=== PATIENT | female | born 1980 | race Two or more races ===

== ENCOUNTER 2025-07-20 09:37 | Outpatient (CLI) | payer MEDICAID ==
[~2025-07-20 09:37] MED LIST: iohexol 300mg/ml 100ml inj. ONE
--- NOTE | 2025-07-20 10:36 | RADIOLOGY REPORT ---
EXAM: CT CT ABDOMEN PELVIS W/WO IV CONTRAST History: LEFT LOWER QUADRANT PAIN COMPARISON: None TECHNIQUE: Multidetector spiral CT of the abdomen and pelvis was performed from lung bases to pubic symphysis. Intravenous contrast was administered during this examination. Portal venous imaging was obtained. Axial, coronal and sagittal multiplanar reformats were performed by the technologist on a separate workstation. Radiation Dose : 1. Abdomen/Pelvis: CTDIvol 27.8 mGy, DLP 1431.16 mGy*cm. CONTRAST: Type of contrast: Omnipaque 300 Contrast injected: 100 ml FINDINGS: Lung Bases: No acute or significant lung base finding. Normal heart size. No pleural or pericardial effusion. Liver: The liver is normal in size. No focal lesions. Normal hepatic vascular enhancement. Gallbladder and Biliary Tree: Unremarkable Spleen: Unremarkable Pancreas: The pancreas is normal in appearance without focal lesions or abnormal enhancement. Adrenal Glands: Unremarkable Kidneys: No hydronephrosis. Bladder: Unremarkable Bowel: The stomach is grossly normal in appearance. Small bowel and colon are normal in caliber and distribution. Normal appendix is visualized in the right lower quadrant without findings of appendicitis. Few scattered colonic diverticula. Ascites: Absent Lymphadenopathy: No mesenteric, retroperitoneal or periportal lymphadenopathy. Abdominal Wall and Mesentery: Unremarkable. Vasculature: The visualized abdominal aorta is normal in size and caliber. Abdominal and pelvic vessels demonstrate normal enhancement. Pelvic Organs: Few fibroids. Musculoskeletal: No aggressive focal bony lesions, acute fractures or dislocation. IMPRESSION: No clear cause for symptoms. Radiation optimization: All CT scans at this facility use at least one of these dose optimization techniques: automated exposure control mA and/or kV adjustment per patient size (includes targeted exams where dose is matched to clinical indication) or iterative reconstruction.
== END 2025-07-20 23:59 | disposition home or self-care (01) ==
LOC: RAD 09:37
PROVIDERS: ATTEND Nurse Practitioner
DX: D25.9 Leiomyoma of uterus, unspecified (principal); R10.32 Left lower quadrant pain
CPT/HCPCS: 74178; Q9967